=== PATIENT | female | born 1995 | race Caucasian/White ===

== ENCOUNTER → 2016-09-03 | Outpatient (CLI) | payer BC ==
[~2016-09-03] MED LIST: FLEXERIL 1010 MG/TAB PO; TRINESSA 281 TAB; ZOLOFT 50MG50 MG PO
== END ==
LOC: COL.RAD 13:52
DX: M94.8X8 Other specified disorders of cartilage, other site (principal); S73.192A Other sprain of left hip, initial encounter; M25.452 Effusion, left hip
CPT/HCPCS: A9585; Q9967

== ENCOUNTER → 2020-09-12 | Outpatient (REF) | LOC: ZCOL.LAB 15:05 | DX: Z20.822 Contact with and (suspected) exposure to COVID-19 (principal) ==

== ENCOUNTER → 2020-09-16 | Outpatient (REF) | LOC: ZCOL.LAB 05:31 | DX: Z20.822 Contact with and (suspected) exposure to COVID-19 (principal) ==

== ENCOUNTER 2021-02-12 19:08 | Emergency (ER) | payer OTHER ==
[~2021-02-12] VITALS: Ht 175.3 cm; Wt 102.3 kg
[2021-02-12 20:45] VITALS: BP 127/83; PULSE 74; TEMP 98
[2021-02-12 20:47] LABS: HIV 1/2 Antibodies Non-Reactive; HIV-1p24 Antigen Non-Reactive
[2021-02-13 16:20] LABS: HEPATITIS B SURFACE ANTIGEN Negative (Negative); HEPATITIS C VIRUS ANTIBODY Negative (Negative)
== END 2021-02-12 20:45 | disposition home or self-care (01) ==
LOC: COL.ER 19:08 → COL.LAB 19:08 → EDSTATUS 19:52 → COL.ER 20:45
PROVIDERS: Nurse Practitioner
DX: S31.139A Puncture wound of abdominal wall without foreign body, unspecified quadrant without penetration into peritoneal cavity, initial encounter (principal); F41.9 Anxiety disorder, unspecified; F32.A Depression, unspecified; Z79.899 Other long term (current) drug therapy; W46.0XXA Contact with hypodermic needle, initial encounter